=== PATIENT | male | born 1970 | race Caucasian/White ===

== ENCOUNTER 2020-12-10 12:02 | Emergency (ER) | payer BC ==
[2020-12-10 12:07] VITALS: BP 116/72; PULSE 74; TEMP 97.8; BMI 26.4
[2020-12-10] MEDS ORDERED: PENICILLIN V POTASSIUM 500 MG TABLET PO ONE (12:56)
== END 2020-12-10 14:15 | disposition home or self-care (01) ==
LOC: JER 12:02
DX: K04.7 Periapical abscess without sinus (principal)
CPT/HCPCS: 99283-25